=== PATIENT | male | born 1985 | race Two or more races ===

== ENCOUNTER 2019-05-28 18:23 | Emergency (ER) | payer SELFPAY ==
[2019-05-28] MEDS ORDERED: HYDROmorphone 1 MG/ML Syringe IVPUSH ONE (18:40)
[2019-05-28] MEDS ORDERED: Metoclopramide 10 MG/2 ML SDV IVPUSH ONE (18:40)
[2019-05-28] MEDS ORDERED: Sodium Chloride 0.9% 1,000 ML IV SCH (18:45)
--- NOTE | 2019-05-28 18:46 | EDM.PDOC ---
ED HPI GENERAL MEDICAL PROBLEM - General Chief Complaint: Trauma Stated Complaint: CHEST PAIN Time Seen by Provider: 05/28/19 18:30 Source of Information: Reports: Patient History Limitations: Reports: No Limitations, Language Barrier (He doesn't speak good South African. He under stands injures pretty well. His friends are here who speaks very good South African and [employer] interpreters.) - History of Present Illness INITIAL COMMENTS - FREE TEXT/NARRATIVE: 34-year-old male [place] descent presents to the ED after falling apparently while climbing out in the [facility], [place], operated by [facility]. He apparently fell down a stairway steep kiana face first. It is estimated by his friends that he fell 68 feet landing hard on his anterior chest and face. Injuries occurred around 1600 hrs. today. They came in to [place] to eat but has continued to have increasing pain in his right anterior chest and feeling nauseated. There was no loss of conscious. He has abrasions to his left carley-face including his forehead and mandible. He has been walking and has minimal pain in his knees are hips or lower back. Onset: Today Onset Date: 05/28/19 Onset Time: 16:00 Duration: Hour(s): Location: Reports: Head, Face, Neck, Chest (More the right side on the left side.), Back (At the thoracolumbar junction.), Upper Extremity, Right, Lower Extremity, Left, Lower Extremity, Right (Right hand.) Quality: Reports: Ache, Other (Nausea.) Severity: Moderate Improves with: Reports: Rest Worsens with: Reports: Other, Movement Context: Reports: Trauma (Slipped and fell face first down a steep embankment out in the [facility]. Fell 6-8 feet landing face first and right anterior lateral chest.). Denies: Activity (Deep breathing makes his chest pain much worse.), Exercise, Lifting, Sick Contact Associated Symptoms: Reports: Chest Pain, Nausea/Vomiting, Rash, Shortness of Breath (Abrasions to the face forehead facial cheek and mandible.). Denies: Confusion, Cough, cough w sputum, Diaphoresis, Fever/Chills, Headaches (Right anterior chest.), Loss of Appetite, Malaise, Syncope Treatments HAND MODEL: Reports: Other (see below) (None.) Chest Pain Score (Numeric/FACES): 8 - Related Data Allergies Allergy/AdvReac Type Severity Reaction Status Date / Time No Known Allergies Allergy Verified 05/28/19 18:49 Home Meds: Home Meds . [No Known Home Meds] 05/28/19 [History] Social & Family History - Living Situation & Occupation Occupation: Employed Review of Systems - Review of Systems Review Of Systems: See Below Constitutional: Denies: Chills, Diaphoresis, Fever, Weakness Eyes: Reports: No Symptoms Ears: Reports: No Symptoms Nose: Reports: No Symptoms Mouth/Throat: Reports: No Symptoms, Other (No dental or injuries to his tongue.) Respiratory: Reports: Shortness of Breath, Pleuritic Chest Pain (Deep breathing makes him have increased pain in his right anterior lateral chest particularly over ribs 456 and 7.). Denies: Wheezing, Cough, Sputum, Hemoptysis, Other Cardiovascular: Reports: No Symptoms GI/Abdominal: Reports: No Symptoms Genitourinary: Reports: No Symptoms Musculoskeletal: Reports: Back Pain Skin: Reports: No Symptoms (Vocational chronic back pain) Neurological: Reports: No Symptoms Psychiatric: Reports: No Symptoms ED EXAM, GENERAL - Physical Exam Exam: See Below Exam Limited By: Language Barrier General Appearance: Alert (He understands South African very well he does does not speak South African well. His friends are here who speaks [place]se but well and act as interpreters.), WD/WN, Mild Distress, Other (Obvious facial abrasions.) Eye Exam: Bilateral Eye: Normal Inspection, PERRL Ears: Normal TMs Nose: Normal Inspection, Normal Mucosa, No Blood Throat/Mouth: Normal Inspection, Normal Lips, Normal Teeth, Normal Oropharynx, Other (No tongue or dental injuries.) Head: Facial Tenderness (Patient has no rash or abrasions to his left carley- forehead is left facial cheek adjacent to the nose and over the zygomatic process under his eye and below this over the mandible. Are intact. No malocclusion.), Other (He has a superficial laceration mid vertex of his scalp approximately 2.5 cm in length. It does not appear to require sutures. He will be cleansed before final decision is made in this regard.) Neck: Normal Inspection, Tender Midline. No: Lymphadenopathy (L), Lymphadenopathy (R), Thyromegaly (In the midline at C7 only.) Respiratory/Chest: No Respiratory Distress, No Accessory Muscle Use, Decreased Breath Sounds (Please process of the right lung field because of splinting.), Splinting, Other (No subcutaneous emphysema. His pain is localized to the anterolateral ribs 4,5,6 and 7. Are normal abrasions or contusions to the anterior chest wall.). No: Respiratory Distress, Rhonchi, Wheezing (Splinting respirations on the right side particularly.) Cardiovascular: Normal Peripheral Pulses, Regular Rate, Rhythm, No Edema, No Gallop, No Murmur, No Rub Peripheral Pulses: 3+: Carotid (L), Carotid (R), Posterior Tibial (L), Posterior Tibial (R), Dorsalis Pedis (L), Dorsalis Pedis (R) GI/Abdominal: Normal Bowel Sounds, Non-Tender, No Organomegaly, No Abnormal Bruit, No Mass, Pelvis Stable, Other (No surgical scars) (Male) Exam: No Hernia Back Exam: Normal Inspection, Other (He complains of pain at the thoracolumbar junction on firm palpation. There are no abrasions or contusions to the back.). No: CVA Tenderness (L), CVA Tenderness (R) Extremities: Other ( is superficial abrasions to both anterior knees over the patellas. Abrasion to the third MCP joint over his right hand nothing on the left hand or wrist.) Neurological: Alert, Oriented, CN II-XII Intact, Other (Patient is acutely intoxicated by alcohol.) Psychiatric: Normal Affect Skin Exam: Warm, Dry, Normal Color, Rash (Rash abrasions to his left carley- forehead left face over the zygomatic process and left mandible. Abrasions to the right third MCP joint dorsally. Abrasions to both patellas.) EKG INTERPRETATION EKG Date: 05/28/19 Time: 18:41 Rhythm: Other Rate (Beats/Min): 116 [place]: Normal P-Wave: Present QRS: Normal ST-T: Other (Diffuse T-wave flattening V3 to V6.) QT: Prolonged (Mildly prolonged) EKG Interpretation Comments: Borderline ECG Course - Vital Signs Last Recorded V/S: Last Vital Signs Temp 36.3 C 05/28/19 20:05 Pulse 106 H 05/28/19 20:05 Resp 16 05/28/19 20:05 BP 104/67 05/28/19 20:05 Pulse Ox 94 L 05/28/19 20:05 - Orders/Labs/Meds Orders: Active Orders 24 hr Category Date Time Status Influenza Vaccine Charge [RC] .DISCHARGE Care 05/28/19 19:09 Active Pharmacy to Dose - InFluenza V [Pharmacy to Dose - Med 05/28/19 19:09 Pending InFluenza Vaccine] 1 each IM ONETIME ONE Sodium Chloride 0.9% [Normal Saline] 1,000 ml Med 05/28/19 18:45 Active IV ASDIRECTED Medication Orders Sodium Chloride (Normal Saline) 1,000 mls @ 150 mls/hr IV ASDIRECTED ZAIRE Last Admin: 05/28/19 19:12 Dose: 150 mls/hr Influenza Virus Vaccine (Pharmacy To Dose - Influenza Vaccine) 1 each IM ONETIME ONE Stop: 05/28/19 19:10 Labs: Laboratory Tests 05/28/19 05/28/19 05/28/19 Range/Units 18:35 18:35 18:35 WBC 9.46 H (4.23-9.07) K/mm3 RBC 4.85 (4.63-6.08) M/mm3 Hgb 15.4 (13.7-17.5) gm/dl Hct 43.3 (40.1-51.0) % MCV 89.3 (79.0-92.2) fl MCH 31.8 (25.7-32.2) pg MCHC 35.6 H (32.2-35.5) g/dl RDW Std Deviation 43.0 (35.1-43.9) fL Plt Count 209 (163-337) K/mm3 MPV 9.5 (9.4-12.3) fl Neut % (Auto) 33.6 L (34.0-67.9) % Lymph % (Auto) 51.9 (21.8-53.1) % [place] % (Auto) 9.6 (5.3-12.2) % Eos % (Auto) 4.3 (0.8-7.0) Baso % (Auto) 0.6 (0.1-1.2) % Neut # (Auto) 3.17 (1.78-5.38) K/mm3 Lymph # (Auto) 4.91 H (1.32-3.57) K/mm3 [place] # (Auto) 0.91 H (0.30-0.82) K/mm3 Eos # (Auto) 0.41 (0.04-0.54) K/mm3 Baso # (Auto) 0.06 (0.01-0.08) K/mm3 PT 10.8 (9.7-12.0) SECONDS INR 0.99 APTT 26 (22-31) SECONDS Sodium 138 (136-145) mEq/L Potassium 3.9 (3.5-5.1) mEq/L Chloride 101 (98-107) mEq/L Carbon Dioxide 25 (21-32) mEq/L Anion Gap 15.9 H (5-15) BUN 8 (7-18) mg/dL Creatinine 0.8 (0.7-1.3) mg/dL Est Cr Clr Drug Dosing 149.84 mL/min Estimated GFR (MDRD) > 60 (>60) mL/min BUN/Creatinine Ratio 10.0 L (14-18) Glucose 187 H (74-106) mg/dL Calcium 8.9 (8.5-10.1) mg/dL Magnesium 1.8 (1.8-2.4) mg/dl Total Bilirubin 0.3 (0.2-1.0) mg/dL AST 54 H (15-37) U/L ALT 100 H (16-63) U/L Alkaline Phosphatase 89 (46-116) U/L Total Protein 8.6 H (6.4-8.2) g/dl Albumin 4.2 (3.4-5.0) g/dl Globulin 4.4 gm/dL Albumin/Globulin Ratio 1.0 (1-2) Ethyl Alcohol 0.31 (0.00) gm% Meds: Medications Generic Name Dose Route Start Last Admin Trade Name Freq PRN Reason Stop Dose Admin Sodium Chloride 1,000 mls @ 150 mls/hr 05/28/19 18:45 05/28/19 19:12 Normal Saline IV 150 mls/hr ASDIRECTED ZAIRE Administration Influenza Virus Vaccine 1 each 05/28/19 19:09 Pharmacy To Dose - Influenza Vaccine IM 05/28/19 19:10 ONETIME ONE Discontinued Medications Generic Name Dose Route Start Last Admin Trade Name Freq PRN Reason Stop Dose Admin Hydromorphone HCl 1 mg 05/28/19 18:40 05/28/19 19:12 Dilaudid IVPUSH 05/28/19 18:41 1 mg ONETIME ONE Administration Influenza Virus Vaccine 60 mcg 05/28/19 19:15 05/28/19 20:00 Fluzone Quad [id number] Syringe IM 05/28/19 19:16 60 mcg .ONCE ONE Administration Metoclopramide HCl 10 mg 05/28/19 18:40 05/28/19 19:12 Reglan IVPUSH 05/28/19 18:41 10 mg ONETIME ONE Administration - Radiology Interpretation Free Text/Narrative:: 34-year-old male presents to the ED after falling down a steep embankment while climbing note in the [place] [employer] with his buddies. He admits he was drinking some alcohol before climbing but right quite a bit more after falling. He fell face first between 6 and 8 feet. He has abrasions to his left forehead left facial cheek over the zygomatic process and left mandible. Nose is on fracture. Temporomandibular joints are intact and mandible is intact no malocclusion. He does have some pain at the base of the cervical spine but more lucid very well. Unlikely a fracture but will be checked. He is very nauseated at present. Complaining of pain in his right anterior lateral chest over ribs 456 and 7 primarily with no palpable prescription for this or subcutaneous emphysema. His acne however like he has a rib fracture. No pain at the thoracolumbar junction on his back exam. Abrasions to the right hand over the third MCP joint. Abrasions to both knees. Tetanus toxoid is up-to-date about one year ago. An IV will be 150 mils per hour of normal saline. Given Dilaudid 1 mg IV and Reglan 10 mg IV for pain rated as 8 out of 10 in his anterior chest. CT of his head cervical spine thoracic spine and chest without contrast. - Re-Assessments/Exams Free Text/Narrative Re-Assessment/Exam: 05/28/19 19:53 CT scans done of the head revealed no intracranial abnormalities such as bleeding or midline shift no skull fractures identified. CT cervical spine reveals slight degenerative change but no fractures identified. There is mild disc space narrowing at C5-6 level and moderate disc space narrowing at C6-7 level and at the C7-T1 level. Anterior osteophytes are noted at C5-C6 and at C6-7 levels. Slight hypoplastic left mastoid sinus is seen which is felt to be an incidental finding. No bony central canal stenosis of bony neural foraminal stenosis is seen. No fractures again are seen on no abnormal subluxation. CT thoracic spine shows some degenerative changes particularly in the mid thoracic spine but no fractures particularly at the thoracic lumbar junction. CT chest also was within normal limits which and does not reveal any fracture ribs or pulmonary contusion.Labs reveal a white count of 9.46. Auto differential shows 33% neutrophils and 52% lymphocytes suggesting underlying viral infection were so-called right shift. Hemoglobin is 15.4 with hematocrit of 43.3. Platelet counts 209,000. PT was 10.8 with an INR of 0.99. PTT is 26. Sodium 138 with a potassium of 3.9. Chloride is 101 with a bicarbonate of 25. Anion gap is minimally elevated at 15.9. BUN is 8 with a creatinine of 0.8. GFR is greater than 60. Glucose 187. Calcium 8.9. Magnesium 1.8. Total bilirubin is 0.3. AST is 54 with an ALT of 100 presumably due to alcohol-induced hepatitis. Alkaline phosphatase is 89. Total protein is 8.6 with no been fraction of 4.2 again suggesting mild hemoconcentration. Current blood alcohol is 0.31 g percent. Discussed the findings with the patient and his friend who speaks good South African. Charge to home to cleanse his wounds daily with soap and water and apply topical antibiotic such as bacitracin or Polysporin. Advised that he will be much more stiff and sore over the next 24- 48 hours. Motrin 600 mg every 6 hours needed for pain relief. Departure - Departure Time of Disposition: 20:16 Disposition: Home, Self-Care 01 Condition: Fair Clinical Impression: Abrasion of right hand, initial encounter, Abrasion of both knees Fall Qualifiers: Encounter type: initial encounter Qualified Code(s): W19.XXXA - Unspecified fall, initial encounter Abrasion of face and extremities Qualifiers: Encounter type: initial encounter Laterality: left Qualified Code(s): S00.81XA - Abrasion of other part of head, initial encounter; S40.812A - Abrasion of left upper arm, initial encounter; S80.812A - Abrasion, left lower leg, initial encounter Contusion of rib on right side Qualifiers: Encounter type: initial encounter Qualified Code(s): S20.211A - Contusion of right front wall of thorax, initial encounter Laceration of skin of scalp Qualifiers: Encounter type: initial encounter Qualified Code(s): S01.01XA - Laceration without foreign body of scalp, initial encounter Acute alcohol intoxication Qualifiers: Complication of substance-induced condition: uncomplicated Qualified Code(s): F10.920 - Alcohol use, unspecified with intoxication, uncomplicated - Discharge Information *PRESCRIPTION DRUG MONITORING PROGRAM REVIEWED*: Not Applicable *COPY OF PRESCRIPTION DRUG MONITORING REPORT IN PATIENT ELIJAH: Not Applicable Instructions: Contusion, [id number], Head Injury, Adult, [id number] Referrals: PCP,Not In Area [Primary Care Provider] - Forms: ED Department Discharge Additional Instructions: Evaluation in the emergency room today in regards to injuries sustained from a fall while climbing out in the [facility]. Suggest that you fell down a very steep hill face first 6-8 feet. Resulted in contusions to the left forehead left face and chin area a road rash. To be cleansed daily with soap and water. Showering is okay. Then apply topical anabolic such as bacitracin once daily on the wounds. He also suffered a superficial laceration mid vertex of the scalp. This should be cleansed daily with soap and water and shampoo is okay. Ideally he should have bacitracin placed on it once daily as well for 4-5 days to allow to heal without infection. Abrasions to both knees and to the right third knuckle on your hand. These 2 need to be cleansed daily and soap and water application and then topical antibiotic such as bacitracin or Polysporin to prevent secondary infection. Major injury was to your right anterior chest from falling face first. This resulted in blunt trauma to multiple ribs but CT scan does not reveal any broken ribs or injury to the underlying lung. Ribs will take about a week to 10 days to heal up completely. Similarly CT of the head your neck and your mid back also show no broken bones. Suggest Motrin 600 mg every 6 hours needed for pain relief for the next few days. Expect to be much more stiff and sore tomorrow and the next day and then gradually improve. Should be pretty well back to normal in 10 days' time. - My Orders Last 24 Hours: My Active Orders 05/28/19 18:45 Sodium Chloride 0.9% [Normal Saline] 1,000 ml IV ASDIRECTED 05/28/19 19:09 Influenza Vaccine Charge [RC] .DISCHARGE Pharmacy to Dose - InFluenza V [Pharmacy to Dose - InFluenza Vaccine] 1 each IM ONETIME ONE - Assessment/Plan Last 24 Hours: My Active Orders 05/28/19 18:45 Sodium Chloride 0.9% [Normal Saline] 1,000 ml IV ASDIRECTED 05/28/19 19:09 Influenza Vaccine Charge [RC] .DISCHARGE Pharmacy to Dose - InFluenza V [Pharmacy to Dose - InFluenza Vaccine] 1 each IM ONETIME ONE
[2019-05-28] MEDS ORDERED: FLU Vacc QS2019-20(6MOS+)/PF 60 MCG/0.5 ML SYRINGE IM ONE (19:15)
--- NOTE | 2019-05-28 19:37 | CT ---
CT cervical spine Technique: Multiple axial sections were obtained multiple axial sections were obtained from above C1 inferiorly to the bottom of T1. Reconstructed sagittal and coronal images were obtained. Findings: Mild loss of details are noted within the mid and lower cervical spine secondary to patient body habitus. Mild disc space narrowing at C5-6 and moderate disc space narrowing at C6-7 and C7-T1. Anterior osteophytes are noted at C5-C6 and at C6-7. Slightly hypoplastic left mastoid sinus is seen which is felt to be an incidental finding. No bony central canal stenosis or bony neural foraminal stenosis is seen. No fracture is seen. No abnormal subluxation is seen other than that caused by mild degenerative change. Impression: 1. Mild degenerative change. 2. Nothing acute is appreciated on CT study of the cervical spine. Note: Details are slightly limited due to patient body habitus. Diagnostic code #2
--- NOTE | 2019-05-28 19:40 | CT ---
CT chest Technique: Multiple axial sections were obtained from above the lung apices inferiorly through the lung bases. Intravenous contrast was not utilized. Findings: Incidental azygos lobe is noted. No discrete mediastinal hemorrhage or adenopathy is seen. No pericardial thickening is seen. Small portion of the visualized noncontrast upper abdominal structures shows no discrete abnormality. Lungs are clear. No acute parenchymal changes appreciated. Bone window settings were reviewed which shows no acute osseous abnormality. Impression: 1. Nothing acute is appreciated on noncontrast chest CT. Diagnostic code #1
--- NOTE | 2019-05-28 19:45 | CT ---
CT thoracic spine Technique: Multiple axial sections through the thoracic spine were obtained. Reconstructed coronal and sagittal images were reviewed. Findings: Mild disc space narrowing is noted within the mid and upper thoracic spine with mild endplate osteophyte being seen anteriorly. No bony central or bony neural foraminal stenosis is seen. No fracture is identified. No abnormal subluxation is seen. Impression: 1. Slight degenerative change. 2. Nothing acute is appreciated on CT study of the thoracic spine. Diagnostic code #2
--- NOTE | 2019-05-28 19:45 | CT ---
Head CT Technique: Multiple axial sections through the brain were obtained. Intravenous contrast was not utilized. Comparison: No prior intracranial imaging is available. Findings: Ventricles along with basal cisterns and sulci over the convexities are within normal limits for the patient's age. No abnormal parenchymal densities are seen. No evidence of intracranial hemorrhage. No midline shift or mass effect is seen. Bone window settings were reviewed which shows a hypoplastic left mastoid sinus which is incidental. Visualized paranasal sinuses are clear. No acute calvarial abnormality is appreciated. Impression: 1. Nothing acute is appreciated on noncontrast head CT exam. Diagnostic code #1
== END 2019-05-28 20:28 | disposition home or self-care (01) ==
LOC: JD.ED 18:23
DX: S01.01XA Laceration without foreign body of scalp, initial encounter (principal); S20.211A Contusion of right front wall of thorax, initial encounter; S60.511A Abrasion of right hand, initial encounter; S40.812A Abrasion of left upper arm, initial encounter; S80.212A Abrasion, left knee, initial encounter; S80.211A Abrasion, right knee, initial encounter; F10.920 Alcohol use, unspecified with intoxication, uncomplicated; W10.9XXA Fall (on) (from) unspecified stairs and steps, initial encounter; Y93.39 Activity, other involving climbing, rappelling and jumping off; Y92.828 Other wilderness area as the place of occurrence of the external cause; Y90.0 Blood alcohol level of less than 20 mg/100 ml
CPT/HCPCS: 36415; 70450; 71250; 72125; 72128; 80053; 80320; 83735; 85025; 85610; 85730; 90471; 90686; 96361; 96374; 96375; 99284; J1170; J2765; J7040; 93010; G0008; G0480